=== PATIENT | female | born 1995 | race Caucasian/White ===

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

== ENCOUNTER 2017-02-12 12:22 | Outpatient (CLI) | payer OTHER | END 2017-02-12 20:17 | disposition home or self-care (01) | LOC: MRD 12:22 | DX: O26.843 Uterine size-date discrepancy, third trimester (principal); Z3A.34 34 weeks gestation of pregnancy | CPT/HCPCS: 76805 ==